=== PATIENT | male | born 1940 | race Caucasian/White ===

== ENCOUNTER 2019-07-24 03:31 | Inpatient (IN) ==
[2019-07-24] MEDS ORDERED: METOPROLOL TARTRATE 5 MG/5 ML VIAL IV STA (04:05)
[2019-07-24 04:11] LABS: Basophils # 0.1 10*3/uL (0.0-0.2); Basophils % 0.9 % (0.0-0.8); Eosinophils # 0.9 10*3/uL (0.0-0.87); Eosinophils % 6.8 % (0.00-10.9); Hematocrit 45.1 VOL% (42.0-52.0); Hemoglobin 14.3 GM/DL (14.0-18.0); Immature Granulocytes % 0.6 %; Immature Granulocytes Absolute 0.08 #; Lymphocytes # 1.2 10*3/uL (1.4-4.0); Lymphocytes % 8.7 % (21.2-54.2); Mean Corpuscular HGB Conc 31.7 GM/DL (32-36); Mean Corpuscular Volume 89.8 FL (87-102); Monocytes % 11.9 % (1.7-12.7); Neutrophils % 71.1 % (38.7-73.9); Platelet Count 251 T/CUMM (130-400); Red Blood Count 5.02 MC/CUMM (3.8-5.5); Red Cell Distribution Width 14.8 % (9.3-17.3); White Blood Count 13.7 T/CUMM (4-12)
[2019-07-24] MEDS ORDERED: SODIUM CHLORIDE 0.9% 1,000 ML IV STA (04:17)
[2019-07-24 04:19] LABS: PT Patient Result 10.7 SECS (9.8-11.9)
[2019-07-24 04:47] LABS: Albumin 3.6 G/DL (3.4-5.0); Bilirubin,Total 0.8 MG/DL (0.2-1.0); Osmolality,Calculated 278.7 MOS/KG (273-304); Total Protein 7.7 G/DL (6.4-8.3)
[2019-07-24] MEDS ORDERED: FUROSEMIDE 40 MG/4 ML VIAL ONE (05:36)
[2019-07-24] MEDS ORDERED: FUROSEMIDE 40 MG/4 ML VIAL IV STA (05:40)
[2019-07-24] MEDS ORDERED: POTASSIUM CHLORIDE 20 MEQ TABLET PO STA (06:09)
[2019-07-24] MEDS ORDERED: DIGOXIN 0.5 MG/2 ML AMP IV STA (06:09)
[2019-07-24] MEDS ORDERED: hydrALAZINE 20 MG/1 ML VIAL IV PRN (06:10)
[2019-07-24] MEDS ORDERED: ACETAMINOPHEN 325 MG TABLET PO PRN (06:10)
[2019-07-24] MEDS ORDERED: traZODone 50 MG TABLET PO PRN (06:10)
[2019-07-24] MEDS ORDERED: diphenhydrAMINE CAP 25 MG CAPSULE PO PRN (06:10)
[2019-07-24] MEDS ORDERED: guaiFENesin/DM ER 600-30 MG TABLET PO PRN (06:10)
[2019-07-24] MEDS ORDERED: GLUCAGON 1 MG VIAL IM PRN (06:10)
[2019-07-24] MEDS ORDERED: NICOTINE 21 MG/24 HR PATCH TRANSDERM PRN (06:10)
[2019-07-24] MEDS ORDERED: ONDANSETRON 4 MG/2 ML VIAL IV PRN (06:10)
[2019-07-24] MEDS ORDERED: DIGOXIN 0.5 MG/2 ML AMP ONE (06:11)
[2019-07-24] MEDS ORDERED: POTASSIUM CHLORIDE 20 MEQ TABLET PO ONE (06:12)
[2019-07-24] MEDS ORDERED: DEXTROSE 10% 250 ML BAG IV PRN (06:15)
[2019-07-24] MEDS ORDERED: DIGOXIN 0.5 MG/2 ML AMP IV ONE (09:36)
[2019-07-24] MEDS: ASCORBIC ACID 500 MG TABLET PO SCH ×2 (10:04→20:39)
[2019-07-24] MEDS: dilTIAZem Drip 125 MG/125 ML PREMIX IV SCH (10:05)
[2019-07-24] MEDS: ASPIRIN EC 81 MG TABLET PO SCH (10:26)
[2019-07-24] MEDS: ENOXAPARIN 80 MG/0.8 ML SYRINGE SUBCUT SCH ×2 (10:42→20:39)
[2019-07-24] MEDS: TAMSULOSIN 0.4 MG CAPSULE PO SCH (20:39)
[2019-07-24] MEDS ORDERED: DILTIAZEM CD 180 MG CAPSULE PO SCH (21:30)
[2019-07-24] MEDS: MAGNESIUM OXIDE 400 MG TABLET PO SCH (21:30)
[2019-07-24] MEDS: POTASSIUM CHLORIDE 20 MEQ TABLET PO SCH (21:30)
[2019-07-25 06:45] LABS: Risk Ratio 4.7; VLDL CHOLESTEROL 33.8 MG/DL
[2019-07-25 08:25] LABS: Calcium 8.5 MG/DL (8.5-10.1); Osmolality,Calculated 280.5 MOS/KG (273-304)
[2019-07-25 08:53] LABS: Basophils # 0.1 10*3/uL (0.0-0.2); Basophils % 0.8 % (0.0-0.8); Eosinophils # 0.8 10*3/uL (0.0-0.87); Eosinophils % 6.9 % (0.00-10.9); Hematocrit 39.8 VOL% (42.0-52.0); Hemoglobin 12.5 GM/DL (14.0-18.0); Immature Granulocytes % 0.7 %; Immature Granulocytes Absolute 0.08 #; Lymphocytes # 1.2 10*3/uL (1.4-4.0); Lymphocytes % 10.5 % (21.2-54.2); Mean Corpuscular HGB Conc 31.4 GM/DL (32-36); Mean Corpuscular Volume 91.1 FL (87-102); Monocytes % 14.4 % (1.7-12.7); Neutrophils % 66.7 % (38.7-73.9); Platelet Count 214 T/CUMM (130-400); Red Blood Count 4.37 MC/CUMM (3.8-5.5); Red Cell Distribution Width 14.9 % (9.3-17.3); White Blood Count 11.7 T/CUMM (4-12)
[2019-07-25] MEDS ORDERED: amLODIPine 2.5 MG TABLET PO SCH (09:00)
[2019-07-25] MEDS: FINASTERIDE 5 MG TABLET PO SCH ×2 (09:20→09:30)
[2019-07-25] MEDS: MAGNESIUM OXIDE 400 MG TABLET PO SCH ×2 (09:20→22:10)
[2019-07-25] MEDS: DILTIAZEM CD 240 MG CAPSULE PO SCH ×2 (09:20→22:11)
[2019-07-25] MEDS: APIXABAN 5 MG TABLET PO SCH ×2 (09:21→22:10)
[2019-07-25] MEDS: ASPIRIN EC 81 MG TABLET PO SCH (09:21)
[2019-07-25] MEDS: LEVOTHYROXINE 100 MCG TABLET PO SCH ×2 (09:21→09:30)
[2019-07-25] MEDS: ASCORBIC ACID 500 MG TABLET PO SCH ×2 (09:21→22:11)
[2019-07-25] MEDS: POTASSIUM CHLORIDE 20 MEQ TABLET PO SCH ×2 (09:21→22:12)
[2019-07-25] MEDS: FUROSEMIDE 40 MG/4 ML VIAL IV SCH (09:22)
[2019-07-25] MEDS ORDERED: DIGOXIN 0.5 MG/2 ML AMP IV ONE (11:18)
[2019-07-25] MEDS ORDERED: FUROSEMIDE 40 MG/4 ML VIAL IV ONE (14:45)
[2019-07-25] MEDS: dilTIAZem Drip 125 MG/125 ML PREMIX IV SCH (20:28)
[2019-07-25] MEDS: TAMSULOSIN 0.4 MG CAPSULE PO SCH (22:10)
[2019-07-26 05:04] LABS: Basophils # 0.1 10*3/uL (0.0-0.2); Basophils % 0.9 % (0.0-0.8); Eosinophils # 0.8 10*3/uL (0.0-0.87); Eosinophils % 6.8 % (0.00-10.9); Hematocrit 41.1 VOL% (42.0-52.0); Hemoglobin 12.9 GM/DL (14.0-18.0); Immature Granulocytes % 0.8 %; Immature Granulocytes Absolute 0.09 #; Lymphocytes % 8.3 % (21.2-54.2); Mean Corpuscular HGB Conc 31.4 GM/DL (32-36); Mean Corpuscular Volume 90.1 FL (87-102); Mean Platelet Volume 11.4 FL (9.6-12.0); Monocytes % 15.6 % (1.7-12.7); Neutrophils % 67.6 % (38.7-73.9); Platelet Count 224 T/CUMM (130-400); Red Blood Count 4.56 MC/CUMM (3.8-5.5); Red Cell Distribution Width 14.7 % (9.3-17.3); White Blood Count 11.6 T/CUMM (4-12)
[2019-07-26 05:23] LABS: Calcium 8.8 MG/DL (8.5-10.1); Osmolality,Calculated 282.5 MOS/KG (273-304)
[2019-07-26 05:32] LABS: Eosinophils 3 % (0-10); Lymphocytes 9 % (20-55); Platelet Estimate Adequate; Segmented Neutrophils 76 % (50-85); Total Cells Counted 100
[2019-07-26] MEDS: LEVOTHYROXINE 100 MCG TABLET PO SCH (07:15)
[2019-07-26] MEDS: DILTIAZEM CD 240 MG CAPSULE PO SCH (08:19)
[2019-07-26] MEDS: FINASTERIDE 5 MG TABLET PO SCH (08:19)
[2019-07-26] MEDS: ASPIRIN EC 81 MG TABLET PO SCH (08:19)
[2019-07-26] MEDS: POTASSIUM CHLORIDE 20 MEQ TABLET PO SCH (08:19)
[2019-07-26] MEDS: MAGNESIUM OXIDE 400 MG TABLET PO SCH (08:19)
[2019-07-26] MEDS: FUROSEMIDE 40 MG/4 ML VIAL IV SCH (08:20)
[2019-07-26] MEDS: APIXABAN 5 MG TABLET PO SCH (08:20)
[2019-07-26] MEDS: ASCORBIC ACID 500 MG TABLET PO SCH (08:20)
[2019-07-26] MEDS ORDERED: DIGOXIN 0.5 MG/2 ML AMP IV ONE (09:00)
[2019-07-26 12:01] VITALS: BP 146/67
[2019-07-26] MEDS ORDERED: DIGOXIN 0.125 MG TABLET PO SCH (13:00)
[2019-07-27] MEDS ORDERED: FUROSEMIDE 40 MG TABLET PO SCH (09:00)
== END 2019-07-26 13:57 | disposition home or self-care (01) | DRG 308 ==
LOC: SUATTDRO → N.ED 03:31 → N.EDINP 07:11 → N.TELES 08:25
PROVIDERS: ADMIT Internal Medicine Geriatric Medicine; ATTEND Internal Medicine Geriatric Medicine

== ENCOUNTER 2021-05-08 06:44 | Observation (INO) ==
[2021-05-04 12:35] LABS: Basophils # 0.1 10*3/uL (0.0-0.2); Basophils % 1.1 % (0.0-0.8); Eosinophils # 0.9 10*3/uL (0.0-0.87); Eosinophils % 7.4 % (0.00-10.9); Hematocrit 50.3 VOL% (42.0-52.0); Hemoglobin 15.9 GM/DL (14.0-18.0); Immature Granulocytes % 0.8 %; Lymphocytes # 0.9 10*3/uL (1.4-4.0); Lymphocytes % 7.1 % (21.2-54.2); Mean Corpuscular HGB Conc 31.6 GM/DL (32-36); Mean Corpuscular Volume 93.1 FL (87-102); Mean Platelet Volume 10.9 FL (9.6-12.0); Monocytes % 10.5 % (1.7-12.7); Neutrophils % 73.1 % (38.7-73.9); Platelet Count 256 T/CUMM (130-400); Red Cell Distribution Width 14.6 % (9.3-17.3); White Blood Count 11.9 T/CUMM (4-12)
[2021-05-04 12:46] LABS: Calcium 9.5 MG/DL (8.5-10.1); Osmolality,Calculated 277.7 MOS/KG (273-304); Potassium 4.8 MMOL/L (3.5-5.1)
[2021-05-04 12:47] LABS: PT Patient Result 11.2 SECS (10.5-12.0); Partial Thromboplastin Time 29.9 SECS (23.8-32.1)
[~2021-05-08 06:44] MED LIST: LACTATED RINGERS 1,000 ML IV SCH
[2021-05-08] MEDS ORDERED: propofoL 200 MG/20 ML VIAL IV ONE (09:18)
[2021-05-08] MEDS ORDERED: LIDOCAINE 1% 5 ML VIAL ONE (09:18)
[2021-05-08] MEDS ORDERED: DEXAMETHASONE 4 MG/1 ML VIAL ONE (09:18)
[2021-05-08] MEDS ORDERED: fentaNYL 100 MCG/2 ML VIAL ONE (09:18)
[2021-05-08] MEDS ORDERED: ROCURONIUM 50 MG/5 ML VIAL IV ONE (09:18)
[2021-05-08] MEDS ORDERED: BUPIVACAINE MPF 0.25% 30 ML VIAL ONE (09:18)
[2021-05-08] MEDS ORDERED: SEVOFLURANE 1 UNIT/15 MINUTE INH ONE ×6 (09:18→10:45)
[2021-05-08] MEDS ORDERED: LIDOCAINE 2% 5 ML VIAL ONE (09:18)
[2021-05-08] MEDS ORDERED: TISSUE ADHESIVE 1 EACH APPLICATOR TOP ONE (09:31)
[2021-05-08] MEDS ORDERED: ePHEDrine 50 MG/ML VIAL ONE (10:09)
[2021-05-08] MEDS ORDERED: SODIUM CHLORIDE 0.9% 100 ML IV ONE (10:23)
[2021-05-08] MEDS ORDERED: PHENYLEPHRINE 10 MG/1 ML VIAL IV ONE (10:23)
[2021-05-08] MEDS ORDERED: ONDANSETRON 4 MG/2 ML VIAL ONE ×2 (10:45→12:04)
[2021-05-08] MEDS ORDERED: ACETAMINOPHEN INJ 1,000 MG/100 ML VIAL IV ONE (10:45)
[2021-05-08] MEDS ORDERED: GLYCOPYRROLATE 0.4 MG/2 ML VIAL ONE ×2 (11:18)
[2021-05-08] MEDS ORDERED: NEOSTIGMINE 10 MG/10 ML VIAL ONE (11:18)
[2021-05-08] MEDS ORDERED: MEPERIDINE 25 MG/1 ML VIAL ONE (12:04)
[2021-05-08] MEDS ORDERED: HYDROmorphone 2 MG/1 ML VIAL IV PRN ×2 (12:05→15:42)
[2021-05-08] MEDS ORDERED: PROMETHAZINE INJ 25 MG in SODIUM CHLORIDE 0.9% 50 ML IV PRN (12:05)
[2021-05-08] MEDS ORDERED: ONDANSETRON 4 MG/2 ML VIAL IV PRN ×2 (12:05→15:50)
[2021-05-08] MEDS: MEPERIDINE 25 MG/1 ML VIAL IV PRN ×2 (12:05→12:25)
[2021-05-08] MEDS ORDERED: diphenhydrAMINE 50 MG/1 ML VIAL IV PRN (12:05)
[2021-05-08] MEDS ORDERED: TAMSULOSIN 0.4 MG CAPSULE PO ONE ×2 (14:01→14:02)
[2021-05-08] MEDS ORDERED: ACETAMINOPHEN 325 MG TABLET PO PRN (15:42)
[2021-05-08] MEDS ORDERED: ALBUTEROL/IPRATROPIUM 3 ML NEB RESP TX PRN (15:50)
[2021-05-08] MEDS ORDERED: BISACODYL 5 MG TABLET PO PRN (15:50)
[2021-05-08] MEDS: LACTATED RINGERS 1,000 ML IV SCH ×2 (16:23→21:57)
[2021-05-08] MEDS: KETOROLAC 15 MG/1 ML VIAL IV SCH ×2 (16:56→21:56)
[2021-05-08 18:05] LABS: Hematocrit 43.1 VOL% (42.0-52.0); Hemoglobin 13.8 GM/DL (14.0-18.0)
[2021-05-08] MEDS ORDERED: BENZONATATE 100 MG CAPSULE PO PRN (18:24)
[2021-05-08] MEDS ORDERED: TAMSULOSIN 0.4 MG CAPSULE PO SCH (21:00)
[2021-05-08] MEDS ORDERED: POTASSIUM CHLORIDE 10 MEQ TABLET PO SCH (21:00)
[2021-05-08] MEDS ORDERED: DIGOXIN 0.125 MG TABLET PO SCH (21:00)
[2021-05-08] MEDS ORDERED: ASPIRIN EC 81 MG TABLET PO SCH (21:00)
[2021-05-08] MEDS: METOPROLOL TARTRATE 100 MG TABLET PO SCH (21:56)
[2021-05-08] MEDS: ASCORBIC ACID 500 MG TABLET PO SCH (21:56)
[2021-05-08 22:38] LABS: Hematocrit 40.3 VOL% (42.0-52.0); Hemoglobin 13.1 GM/DL (14.0-18.0)
[2021-05-09] MEDS: KETOROLAC 15 MG/1 ML VIAL IV SCH (03:29)
[2021-05-09 05:55] LABS: Hematocrit 39.3 VOL% (42.0-52.0); Hemoglobin 12.7 GM/DL (14.0-18.0)
[2021-05-09 06:09] LABS: Calcium 7.9 MG/DL (8.5-10.1); Potassium 4.4 MMOL/L (3.5-5.1)
[2021-05-09] MEDS: LACTATED RINGERS 1,000 ML IV SCH (06:12)
[2021-05-09] MEDS ORDERED: LEVOTHYROXINE 100 MCG TABLET PO SCH (07:00)
[2021-05-09] MEDS: METOPROLOL TARTRATE 100 MG TABLET PO SCH (08:55)
[2021-05-09] MEDS: ASCORBIC ACID 500 MG TABLET PO SCH (08:55)
[2021-05-09] MEDS ORDERED: FINASTERIDE 5 MG TABLET PO SCH (09:00)
[2021-05-09] MEDS ORDERED: PANTOPRAZOLE 40 MG TABLET PO SCH (09:00)
[2021-05-09] MEDS ORDERED: ESCITALOPRAM 10 MG TABLET PO SCH (09:00)
[2021-05-09 10:25] VITALS: BP 117/68
== END 2021-05-09 11:07 | disposition home or self-care (01) ==
LOC: N.3E 06:44 → N.SDSINP 06:44 → N.OR 06:44 → N.SDSINP 06:45 → N.3E 16:37 → N.OR 05-09 11:07 → N.3E 05-09 17:35
PROVIDERS: ADMIT Surgery; ATTEND Surgery